=== PATIENT | female | born 1980 | race Caucasian/White ===

== ENCOUNTER 2019-06-12 20:29 | Emergency (ER) | payer SELFPAY ==
[~2019-06-12] VITALS: Ht 167.6 cm; Wt 68.2 kg
[2019-06-12 20:31] VITALS: BP 134/97; Ht 167.6 cm; Wt 68.2 kg
== END 2019-06-12 22:19 ==
LOC: D.ER 20:29
DX: S00.03XA Contusion of scalp, initial encounter (principal); S09.90XA Unspecified injury of head, initial encounter; W19.XXXA Unspecified fall, initial encounter